=== PATIENT | male | born 1980 | race Caucasian/White ===

== ENCOUNTER 2017-06-05 11:44 | Emergency (ER) | payer SELFPAY ==
[2017-06-05 13:46] VITALS: BP 121/73
[2017-06-05] MEDS ORDERED: Ketorolac INJ* 60 MG/2 ML VIAL IM ONE (15:05)
--- NOTE | 2017-06-05 15:18 | UC ---
Hand/Wrist HPI - HPI Summary HPI Summary: TWO DAYS AGO LIFTING HEAVY PIECE OF FURNITURE AT WORK ; PAIN IN RIGHT UPPER BACK SINCE TIME OF INJURY - History Of Current Complaint Chief Complaint: UCBackPain Stated Complaint: MID BACK SPASMS WC Time Seen by Provider: 06/05/17 14:52 Hx Obtained From: Patient Mechanism Of Injury: LIFTING HEAVY PIECE OF FURNATURE AT WORK Onset/Duration: Sudden Onset, Lasting Days Severity Initially: Moderate Severity Currently: Moderate Character Of Pain: Dull, Aching, Spasmodic, Stiffness Aggravating Factor(s): Movement, Lifting, Flexion, Extension Alleviating: Rest Associated Signs And Symptoms: Positive: Negative - Allergies/Home Medications Allergies/Adverse Reactions: Allergies Allergy/AdvReac Type Severity Reaction Status Date / Time No Known Allergies Allergy Verified 06/05/17 13:46 Home Medications: Home Medications Naproxen [Naproxen 500 mg] 500 mg PO Q8H PRN 06/05/17 [History Confirmed ] PMH/Surg Hx/FS Hx/Imm Hx Previously Healthy: Yes - Surgical History Surgical History: None - Family History Known Family History: Negative: Renal Disease - Social History Occupation: Employed Full-time Lives: With Family Alcohol Use: Occasionally Substance Use Type: Marijuana Smoking Status (MU): Never Smoked Tobacco Review of Systems Constitutional: Negative Skin: Negative Eyes: Negative ENT: Negative Respiratory: Negative Cardiovascular: Negative Gastrointestinal: Negative Genitourinary: Negative Motor: Negative Neurovascular: Negative Musculoskeletal: Myalgia - SPASM IN RIGHT UPPER BACK Neurological: Negative Psychological: Negative Is Patient Immunocompromised?: No All Other Systems Reviewed And Are Negative: Yes Physical Exam Triage Information Reviewed: Yes Appearance: Well-Appearing, Well-Nourished, Pain Distress - MILD Vital Signs: Initial Vital Signs Temp 98.7 F 06/05/17 13:42 Pulse 62 06/05/17 13:42 Resp 16 06/05/17 13:42 BP 121/73 06/05/17 13:42 Pulse Ox 100 06/05/17 13:42 Vital Signs Reviewed: Yes Eye Exam: Normal ENT Exam: Normal ENT: Positive: Normal ENT inspection, Hearing grossly normal, TMs normal Dental Exam: Normal Neck exam: Normal Neck: Positive: Supple, Nontender Respiratory Exam: Normal Respiratory: Positive: Chest non-tender, Lungs clear, Normal breath sounds, No respiratory distress Cardiovascular Exam: Normal Cardiovascular: Positive: RRR, No Murmur, Pulses Normal Abdominal Exam: Normal Abdomen Description: Positive: Nontender, No Organomegaly Musculoskeletal: Positive: Strength Intact, ROM Intact, No Edema, Other: - PALPABLE SPASM RIGHT PARAPINAL MUSCLES MEDIAL TO SCAPULA Hand/Wrist Course/Dx - Differential Dx/Diagnosis Differential Diagnosis/HQI/PQRI: Sprain, Strain Provider Diagnoses: PALPABLE SPASM RIGHT PARASPINAL MUSCLES MEDIAL TO SCAPULA Discharge - Discharge Plan Condition: Stable Disposition: HOME Prescriptions: Carisoprodol TAB* [Soma TAB*] 350 mg PO TID PRN #15 tab MDD three tabs PRN Reason: Spasms HYDROcodone/ACETAMIN 5-325 MG* [Rayle 5-325 TAB*] 1 tab PO Q8H PRN #12 tab MDD three tabs PRN Reason: Pain Patient Education Materials: Muscle Spasm (ED), Back Pain (ED) Referrals: Non Staff,Doctor [Primary Care Provider] - Additional Instructions: PRIMARY CARE: There are four major types of clinical preventive care: immunizations, screening , behavioral counseling (sometimes referred to as lifestyle changes), and chemoprevention. All four apply throughout the life span. It is important to establish and to have access to a Primary Care Physician, not only for follow- up regarding acute and chronic problems, but also for preventative care. PHYSICAL THERAPY REFERRAL: You have been prescribed physical therapy. Treatments may include stretching, exercise, application of heat or cold, and other modalities. After an injury, PT can reduce swelling and pain. In recovery, PT is used to restore mobility and strength. Your specific treatment goals are: ___x__ Reduction of Swelling (EGS, US, ice as needed) ___x__ Pain Reduction (EGS, US, ice as needed) ___x__ TENS Pack Fitting and Instruction Wound Hydrotherapy ___x__ Preservation of Mobility ___x__ Yazdanism of Mobility ___x__ Strength Yazdanism ___x__ Work or Sports Hardening This instruction sheet also serves as your PHYSICAL THERAPY REFERRAL! Please take it with you to the therapist, so he/she will be aware of your diagnosis and treatment plan. You may see the physical therapist of your choice for these treatments, but may wish to check with your insurance to be sure the provider you select is covered. It's important to see the doctor to whom you have been referred for follow up. Images Front/Back of Body, Lg ([place]): 1 - PALPABLE SPASM RIGHT PARAPINAL MUSCLES MEDIAL TO SCAPULA
== END 2017-06-05 15:37 | disposition home or self-care (01) ==
LOC: UCCORT 11:44
DX: R25.2 Cramp and spasm (principal); F12.90 Cannabis use, unspecified, uncomplicated; X50.0XXA Overexertion from strenuous movement or load, initial encounter; Y92.89 Other specified places as the place of occurrence of the external cause; Y99.8 Other external cause status
CPT/HCPCS: 96372; 99202; G0463; J1885